=== PATIENT | female | born 1995 | race Caucasian/White ===

== ENCOUNTER 2023-11-13 12:10 | Outpatient (CLI) | payer OTHER ==
[2023-11-13 13:02] LABS: HEMATOCRIT 39.6 % (36.0-45.00); HEMOGLOBIN 13.5 g/dL (12.0-15.00); MEAN CELL VOLUME 91.7 fL (80.00-100.00); MEAN CORPUSCULAR HEMOGLOBIN 31.2 pg (27.00-32.0); PLATELET COUNT 259 K/uL (150-450); RED BLOOD COUNT 4.31 M/uL (4.00-6.00); RED CELL DISTRIBUTION WIDTH 12.6 % (11.5-14.5)
[2023-11-13 13:12] LABS: PH,URINE 5.5 (5.0-8.0); URINE APPEARANCE Clear; URINE BILIRRUBIN Negative (NEGATIVE); URINE BLOOD Negative; URINE COLOR Yellow; URINE GLUCOSE Negative (NEGATIVE); URINE LEUKOCYTE Negative; URINE NITRATE Negative; URINE PROTEIN Negative (NEGATIVE); URINE UROBILINOGEN 0.2 E.U./dl
[2023-11-13 13:15] LABS: URINE BACTERIA 318.7 uL (0.0-1933); URINE EPITHELIAL CELLS 10.1 uL (0.0-38.8); URINE RBC 4.1 uL (0.0-20.8); URINE WBC 15.3 uL (0.0-23.2)
[2023-11-13 13:40] LABS: TSH 1.23 uIU/mL (0.358-3.74)
[2023-11-13 15:11] LABS: RH POSITIVE
[2023-11-13 15:28] LABS: RAPID PLASMA REAGIN NONREACTIVE BY RPR (NONREACTIVE)
[2023-11-15 10:12] LABS: RUBELLA IGG 1.37 index (Immune >0.99); hav igm Negative (Negative); hcv Non Reactive (Non Reactive); hep b c Negative (Negative)
[2023-11-15 22:06] LABS: chla t Negative (Negative); neiss Negative (Negative)
== END 2023-11-13 12:11 | disposition home or self-care (01) ==
LOC: LAB 12:10
PROVIDERS: ATTEND Specialist
DX: Z34.00 Encounter for supervision of normal first pregnancy, unspecified trimester (principal)

== ENCOUNTER 2024-04-14 22:43 | Emergency (ER) | payer OTHER ==
[~2024-04-14] VITALS: Ht 149.9 cm; Wt 58.5 kg
[2024-04-15] MEDS ORDERED: ONDANSETRON 4 MG TAB.RAPDIS PO STA (00:58)
== END 2024-04-15 01:03 | disposition home or self-care (01) ==
LOC: EMR PED 22:43 → EDBD 23:09 → ER 23:09
DX: K21.9 Gastro-esophageal reflux disease without esophagitis (principal)

== ENCOUNTER 2024-07-02 11:49 | Inpatient (IN) | payer OTHER ==
[~2024-07-02] VITALS: Ht 154.9 cm; Wt 62.6 kg
[2024-07-03] VITALS (10 sets, daily range): BP systolic 93–126; BP diastolic 49–72
[2024-07-03] MEDS ORDERED: VALTREX1000 MG PO (05:29)
[2024-07-03] MEDS ORDERED: PRENATAL TABLE1 EAC1 (05:29)
[2024-07-03] MEDS ORDERED: RINGERS SOLUTION,LACTATED 1,000 ML IV SCH (05:30)
[2024-07-03] MEDS ORDERED: OXYTOCIN 500 ML IV SCH (06:30)
[2024-07-03 06:37] LABS: URINE APPEARANCE Cloudy; URINE BILIRRUBIN Negative (NEGATIVE); URINE BLOOD Negative; URINE COLOR Yellow; URINE GLUCOSE Negative (NEGATIVE); URINE KETONE Negative (NEGATIVE); URINE LEUKOCYTE Moderate; URINE NITRATE Negative; URINE PROTEIN Trace (NEGATIVE)
[2024-07-03 06:38] LABS: URINE BACTERIA 2793.2 uL (0.0-1933); URINE EPITHELIAL CELLS 108.5 uL (0.0-38.8); URINE RBC 4.1 uL (0.0-20.8)
[2024-07-03 06:49] LABS: URINE CAST 0.76 uL (0.0-1.40)
[2024-07-03 07:12] LABS: INR < 0.93; PARTIAL THROMBOPLASTIN TIME 27.6 SECONDS (22.0-34.0)
[2024-07-03 07:15] LABS: ALBUMIN 2.8 gm/dL (3.4-5.0); BILIRUBIN TOTAL 0.61 mg/dL (0.3-1.2); CALCIUM 9.1 mg/dL (8.5-10.1); CREATININE SERUM 0.59 mg/dL (0.55-1.02); GFR 119.68; GLOBULINA 3.7 G/DL (2.4-3.5); POTASSIUM 4.04 mEq/L (3.5-5.1); TOTAL PROTEIN 6.5 gm/dL (6.4-8.2)
[2024-07-03 07:36] LABS: HEMOGLOBIN 13.3 g/dL (12.0-15.00); MEAN CELL VOLUME 92.2 fL (80.00-100.00); MEAN CORPUSCULAR HEMOGLOBIN 32.4 pg (27.00-32.0); MEAN CORPUSCULAR HGB CONC 35.1 g/dl (32.0-36.0); PLATELET COUNT 202 K/uL (150-450); RED BLOOD COUNT 4.12 M/uL (4.00-6.00); RED CELL DISTRIBUTION WIDTH 14.1 % (11.5-14.5)
[2024-07-03] MEDS ORDERED: MEPERIDINE HCL/PF 50 MG/ML VIAL IV STA ×2 (08:43→11:29)
[2024-07-03] MEDS ORDERED: PROMETHAZINE HCL 25 MG/ML AMPUL IV ONE (08:45)
[2024-07-03] MEDS ORDERED: PROMETHAZINE HCL 25 MG/ML AMPUL IV STA (11:29)
[2024-07-03] MEDS ORDERED: CHLORHEXIDINE GLUCONATE 120 ML BOTTLE TOP ONE (15:15)
[2024-07-03] MEDS ORDERED: ACETAMINOPHEN 325 MG TABLET PO PRN (15:15)
[2024-07-03] MEDS ORDERED: LIDOCAINE HCL 1% 10ML VIAL IJ ONE (15:15)
[2024-07-03] MEDS ORDERED: OXYTOCIN 20 UNITS/1000ML RL PIGGYBAG IV ONE (15:15)
[2024-07-03] MEDS ORDERED: ERYTHROMYCIN BASE OPHT 1GM EACH TUBE OP ONE (15:15)
[2024-07-03] MEDS ORDERED: OxyCODONE HCL/APAP UD (PERCOCET) PO PRN (15:15)
[2024-07-03] MEDS ORDERED: BENZOCAINE/MENTHOL 90 ML BOTTLE TOP SCH (17:00)
[2024-07-03] MEDS ORDERED: HYDROCORTISONE 2.5% 30 GM TUBE RECTAL SCH (17:00)
[2024-07-04 01:34] LABS: HEMATOCRIT 34.4 % (36.0-45.00); MEAN CELL VOLUME 93.2 fL (80.00-100.00); MEAN CORPUSCULAR HGB CONC 33.8 g/dl (32.0-36.0); PLATELET COUNT 187 K/uL (150-450); RED CELL DISTRIBUTION WIDTH 14.1 % (11.5-14.5)
[2024-07-04 01:37] VITALS: BP 99/62
[2024-07-04 01:38] LABS: HEMOGLOBIN 11.6 g/dL (12.0-15.00); MEAN CORPUSCULAR HEMOGLOBIN 31.3 pg (27.00-32.0)
[2024-07-04 08:46] VITALS: BP 101/65
[2024-07-04 16:00] VITALS: BP 107/70
[2024-07-05 02:17] VITALS: BP 100/63
[2024-07-05 08:00] VITALS: BP 111/74
== END 2024-07-05 14:14 | disposition home or self-care (01) | DRG 807 ==
LOC: OB/GYN 11:49 → LDR 07-03 05:14 → OB/GYN 07-03 15:50
PROVIDERS: ADMIT Specialist; ATTEND Specialist
PROC: 10E0XZZ Delivery of Products of Conception, External Approach (ICD-10-PCS; principal; 2024-07-03)
PROC: 0KQM0ZZ Repair Perineum Muscle, Open Approach (ICD-10-PCS; 2024-07-03)
PROC: 4A1HXCZ Monitoring of Products of Conception, Cardiac Rate, External Approach (ICD-10-PCS; 2024-07-03)
DX: O70.1 Second degree perineal laceration during delivery (principal); Z37.0 Single live birth; Z3A.40 40 weeks gestation of pregnancy; Z20.822 Contact with and (suspected) exposure to COVID-19